=== PATIENT | male | born 1990 | race African-American/Black ===

== ENCOUNTER 2018-03-06 18:32 | Emergency (ER) | payer SELFPAY ==
[~2018-03-06] VITALS: Ht 172.7 cm; Wt 54.3 kg
[2018-03-06 18:36] VITALS: BP 126/67; TEMP 36.8; Ht 172.7 cm; Wt 54.3 kg
[2018-03-06] MEDS ORDERED: IBUPROFEN 800 MG TAB PO STA (18:46)
[2018-03-06] MEDS ORDERED: XYLOCAINE 1%/SOD BICARB 20 ML VIAL INFIL ONE (19:00)
[2018-03-06 20:13] VITALS: PULSE 72; O2SAT 98
--- NOTE | 2018-03-07 15:13 | EMERGENCY ROOM VISIT NOTE ---
ED Visit Note First contact with patient: 18:42 Chief Complaint: Right hand laceration. History of Present Illness: Mr. Rossi is a 27-year-old black male who ambulates into the ED complaining of right palm hand laceration. Patient reports approximately 6.5 hours ago he cut the palmar aspect of his right hand on a bathroom mirror. He reports he control bleeding but did not wash his wound, Currently he is complaining of a stinging pain in the area of his laceration. He rates his discomfort 4/10. Pain is nonradiating. His pain worsens with palpation and when he completely extends all his MCP joints. He has not identified any alleviating factors related to the pain. He has not taken any medication for pain prior to arrival at the hospital. He denies any associated symptoms including other hand pain, other finger pain, hand/finger weakness/ numbness/tingling peer Review of Systems: As noted above in history of present illness. Past Medical History: Unspecified skin disorder, bronchitis, chronic back pain. Current Medications: Patient denies. Allergies to Medications: Patient denies. Social History: Patient is currently employed; he feels safe in his home environment; he admits to tobacco and alcohol use. Physical Examination: Vital Signs: Date Time Temp Pulse Resp B/P (MAP) Pulse Ox O2 Delivery O2 Flow Rate FiO2 03/06/18 20:13 72 18 98 03/06/18 18:36 36.8 67 16 126/67 99 Room Air GENERAL: 27-year-old male in mild to moderate distress due to pain, nontoxic- appearing, afebrile and hemodynamically stable. NEUROLOGICAL: Awake, alert and oriented to person, place and time. Answering questions appropriately and following commands. Normal gait. Good hand eye coordination. No focal motor sensory deficits. SKIN: Warm, dry and pink. Right Hand: Over the palmar aspect of the hand patient has a 3.7 cm full-thickness laceration starting just inferior to the third MCP joint and extending laterally towards the first MCP joint. RIGHT HAND: Soft tissue injury as noted above. No gross bony deformity. Mild tenderness over his laceration. He was able to distinguish light sensations through all dermatomes. 5/5 muscle strength in all flexion of the second through fifth MCP, PIP and DIP joints. Throughout the hand the skin was warm and pink and capillary refill was brisk. ED Course: Patient is assessed as noted above. Patient's medication list was reviewed. Patient was given 100 mg of ibuprofen by mouth for pain Wound Repair: Complexity: Basic Verbal consent was obtained after the risks and benefits were explained. The skin was prepped with betadine and a sterile field set. Wound edges of the wound was anesthetized with 4.3 ml buffered 1% lidocaine. The wound was explored for foreign bodies and none found. Copious irrigation was performed using sterile saline. With direct pressure the bleeding subsided. Debridement was not performed. The wound edges were approximated using 5-0 Ethilon with 8 simple interrupted sutures. Hemostasis and excellent approximation was achieved. Antibacterial ointment and a sterile dressing applied. No complications and the patient tolerated the procedure well. Patient was educated about tonight's findings and instructed on his treatment plan; he verbalizes understanding and agreement with this plan. Clinical Impression: Laceration of the right hand. Disposition: Patient discharged home in stable condition; prior to departure he was reassessed and subjectively reported he was pain-free. Plan: Comfort measures, wound care and signs of infection were discussed with the patient. Patient was encouraged to follow-up with personal physician or return emergency department for any signs of infection and/or suture removal in 10-12 days.
== END 2018-03-06 20:14 | disposition home or self-care (01) ==
LOC: C.EDB 18:34 → C.EDD 20:14
DX: S61.411A Laceration without foreign body of right hand, initial encounter (principal); W25.XXXA Contact with sharp glass, initial encounter; Z72.0 Tobacco use

== ENCOUNTER 2018-03-15 14:28 | Emergency (ER) | payer SELFPAY ==
[~2018-03-15] VITALS: Ht 172.7 cm; Wt 55.7 kg
[2018-03-15 14:31] VITALS: BP 116/75; PULSE 108; TEMP 36.7; O2SAT 100; Ht 172.7 cm; Wt 55.7 kg
--- NOTE | 2018-03-17 12:09 | EMERGENCY ROOM VISIT NOTE ---
ED Visit Note First contact with patient: 14:34 CHIEF COMPLAINT: Suture removal. HISTORY OF PRESENT ILLNESS: Mr. Rossi is a 27-year-old black male who ambulates into the ED requesting suture removal for a right hand laceration he sustained 9 days ago. He reports there has been no pain, swelling, redness, or drainage from the wound and he feels like the laceration is healing well. PHYSICAL EXAM: Vital Signs: Date Time Temp Pulse Resp B/P (MAP) Pulse Ox O2 Delivery O2 Flow Rate FiO2 03/15/18 14:31 36.7 108 16 116/75 100 Room Air General: 27-year-old male in no acute distress, nontoxic-appearing, afebrile and hemodynamically stable. Neurological: Awake, alert and oriented 3. Answering questions appropriately and following commands. Right hand:: Clean dry and intact wound on the palm without signs of infection (erythema, swelling, tenderness, purulent drainage). Distal fingers are neurologically intact. ED COURSE: Patient is assessed as noted above. Patient's medication list was reviewed. 8 sutures were removed without any difficulty. While removing the last stitch patient slightly flexed the palm of his hand and there was mild separation of the wound edges. Benzoin was laced on the wound surrounding the laceration and Steri-Strips were applied. A clean dressing was applied. Patient was educated about today's findings and instructed on his treatment plan ; he verbalized understanding and agreement with this plan. DISPOSITION: Patient discharged home in stable condition. CLINICAL IMPRESSION: Suture removal with wound dehiscence. PLAN: Patient was encouraged to keep his wound, Steri-Strips and bandage dry the next 4 days. Patient was encouraged to remove the bandage and Steri-Strips in 4 days. Patient is encouraged to continue to watch for any signs of infection. Patient was encouraged to follow-up with his PCP or return to the ED for any signs of infection or any new/concerning symptoms.
== END 2018-03-15 15:21 | disposition home or self-care (01) ==
LOC: C.EDB 14:29 → C.EDD 15:21
DX: Z48.02 Encounter for removal of sutures (principal); S61.411D Laceration without foreign body of right hand, subsequent encounter; X58.XXXD Exposure to other specified factors, subsequent encounter